=== PATIENT | male | born 1965 | race Caucasian/White ===

== ENCOUNTER 2019-06-08 16:52 | Emergency (ER) | payer OTHER ==
[~2019-06-08] VITALS: Ht 170.2 cm; Wt 79.4 kg
--- NOTE | 2019-06-08 17:32 | NUR ---
in room 1a.
[2019-06-08] MEDS ORDERED: RALTEGRAVIR POTASSIUM 400 MG TABLET PO ONE ×2 (17:45→18:02)
[2019-06-08] MEDS ORDERED: AZITHROMYCIN 250 MG TABLET PO ONE (18:00)
[2019-06-08] MEDS ORDERED: CEFTRIAXONE 500 MG VIAL IM ONE (18:00)
[2019-06-08] MEDS ORDERED: CEFTRIAXONE 1 G VIAL ONE (18:09)
[2019-06-08] MEDS ORDERED: AZITHROMYCIN 250 MG TABLET ONE (18:10)
--- NOTE | 2019-06-08 18:14 | NUR ---
medications given: isentress, rocephin and zithromax. exit care , prescriptions and home going instructions given and signed by patient
[2019-06-08 18:21] VITALS: BP 150/90
[2019-06-10 08:07] LABS: HEPATITIS B SURFACE AB Reactive (.)
== END 2019-06-08 18:23 | disposition home or self-care (01) ==
LOC: ER 16:52
DX: Z77.21 Contact with and (suspected) exposure to potentially hazardous body fluids (principal)
CPT/HCPCS: 36415; 86704; 86706; 86803; 87806; 96372; 99283; J0696; A4663; Q0144